=== PATIENT | female | born 1960 | race Caucasian/White ===

== ENCOUNTER 2023-11-30 08:42 | Emergency (ER) | payer MEDICARE ==
[~2023-11-30] VITALS: Ht 157.5 cm; Wt 103.0 kg
[2023-11-30 08:50] VITALS: BP_SYST 157; PULSE 82; RESP 17; TEMP 97; O2SAT 96
[2023-11-30] MEDS: LORazepam 1 MG TABLET PO ONE (09:06)
[2023-11-30] MEDS ORDERED: LORA-259 PO (10:21)
[2023-11-30 10:37] VITALS: BP_SYST 110; PULSE 77; RESP 16; O2SAT 99
== END 2023-11-30 10:29 | disposition home or self-care (01) ==
LOC: SED 08:42
DX: F41.9 Anxiety disorder, unspecified (principal); R07.9 Chest pain, unspecified
CPT/HCPCS: 71045; 93005; 99283